=== PATIENT | female | born 1980 | race Caucasian/White ===

== ENCOUNTER 2021-06-11 04:56 | Inpatient (IN) | payer OTHER, MEDICARE ==
[2021-06-11] MEDS ORDERED: Gabapentin 300 MG Cap PO ONE (05:45)
[2021-06-11] MEDS ORDERED: Acetaminophen 500 MG Tab PO ONE (05:45)
[2021-06-11] MEDS ORDERED: Dextrose 5%-Lactated Ringers 1,000 ML IV SCH (06:00)
[2021-06-11] MEDS ORDERED: cefOXitin 2 GM Vial ONE (06:32)
[2021-06-11] MEDS ORDERED: Bupivacaine 0.5% 50 ML MDV ONE (06:33)
[2021-06-11] MEDS ORDERED: Lidocaine 1% with EPINEPHrine 1:100,000 50 ML MDV ONE (06:33)
[2021-06-11] MEDS ORDERED: Dexamethasone 4 MG/ML SDV ONE (07:15)
[2021-06-11] MEDS ORDERED: Ondansetron 4 MG/2 ML SDV ONE (07:15)
[2021-06-11] MEDS ORDERED: fentaNYL 250 MCG/5 ML SDV ONE ×2 (07:15→07:42)
[2021-06-11] MEDS ORDERED: Rocuronium 50 MG/5 ML Vial ONE ×2 (07:15→08:28)
[2021-06-11] MEDS ORDERED: Glycopyrrolate 0.2 MG/ML 5 ML MDV ONE (07:15)
[2021-06-11] MEDS ORDERED: Succinylcholine 200 MG/10 ML MDV ONE (07:15)
[2021-06-11] MEDS ORDERED: Propofol 200 MG/20 ML SDV ONE (07:15)
[2021-06-11] MEDS ORDERED: cefOXitin 2 GM in Sodium Chloride 0.9% 50 ML IV ONE (07:15)
[2021-06-11] MEDS ORDERED: Neostigmine Methylsulfate 1 MG/ML 5 ML Syringe ONE (07:15)
[2021-06-11] MEDS ORDERED: Ketamine 18 MG in Sodium Chloride 0.9% 19.82 ML IV SCH (08:00)
[2021-06-11] MEDS ORDERED: Ketamine 500 MG/5 ML MDV IV SCH (08:00)
[2021-06-11] MEDS ORDERED: Labetalol 20 MG/4 ML Syringe ONE (08:12)
[2021-06-11] MEDS ORDERED: fentaNYL 100 MCG/2 ML SDV ONE (08:19)
[2021-06-11] MEDS ORDERED: Naloxone 0.4 MG/ML SDV ONE (09:47)
[2021-06-11] MEDS ORDERED: Ondansetron 4 MG/2 ML SDV IVPUSH ONE (10:13)
[2021-06-11] MEDS ORDERED: hydrOXYzine HCL 100 MG/2 ML SDV IM ONE (10:14)
[2021-06-11] MEDS ORDERED: Baclofen 10 MG Tab PO PRN (11:40)
[2021-06-11] MEDS ORDERED: Hypromellose 0.3% Ophth Soln 15 ML Bottle EYEBOTH PRN (11:46)
[2021-06-11] MEDS ORDERED: Labetalol 20 MG/4 ML Syringe IVPUSH PRN (12:00)
[2021-06-11] MEDS ORDERED: Acetaminophen 500 MG Tab PO PRN (12:00)
[2021-06-11] MEDS ORDERED: oxyCODONE 5 MG Tab PO PRN (12:00)
[2021-06-11] MEDS ORDERED: HYDROmorphone 0.5 MG/0.5 ML Syringe IVPUSH PRN (12:00)
[2021-06-11] MEDS ORDERED: hydrOXYzine HCL 100 MG/2 ML SDV IM PRN (12:00)
[2021-06-11] MEDS ORDERED: diphenhydrAMINE 50 MG/ML SDV IVPUSH PRN (12:00)
[2021-06-11] MEDS ORDERED: Ondansetron 4 MG/2 ML SDV IVPUSH PRN (12:00)
[2021-06-11] MEDS ORDERED: HYDROmorphone 1 MG/ML Syringe IV PRN (12:00)
[2021-06-11] MEDS ORDERED: Metoclopramide 10 MG/2 ML SDV IVPUSH PRN (12:00)
[2021-06-11] MEDS: Dextrose 5%-Lactated Ringers 1,000 ML IV SCH ×2 (12:45→23:24)
[2021-06-11] MEDS: cefOXitin 2 GM in Sodium Chloride 0.9% 50 ML IV SCH ×2 (13:42→20:41)
[2021-06-11] MEDS: Pantoprazole 40 MG Vial IVPUSH SCH (13:43)
[2021-06-11] MEDS: DIFLUPREDNATE 0.05% EYERT SCH ×2 (13:44→20:41)
[2021-06-11] MEDS: Acetaminophen 500 MG Tab PO SCH ×2 (13:44→21:00)
[2021-06-11] MEDS: EYE EYERT SCH ×2 (13:44→20:41)
[2021-06-11] MEDS ORDERED: MVI, Adult with Vitamin K 10 ML, Thiamine 200 MG, Zinc/Copper/Manganese/Selenium 1 ML i... IV SCH ×4 (16:00)
[2021-06-11] MEDS: Cyclobenzaprine 10 MG Tab PO PRN (16:42)
[2021-06-11] MEDS: Heparin Sodium 5,000 Units/ML Vial SUBCUT SCH (17:25)
[2021-06-11] MEDS: carBAMazepine 200 MG Tab PO SCH (20:42)
[2021-06-11] MEDS: Topiramate 100 MG Tab PO SCH (20:42)
[2021-06-11] MEDS: traMADol 50 MG Tab PO PRN (20:48)
[2021-06-11] MEDS: Propranolol 40 MG Tab PO SCH (21:00)
[2021-06-12] MEDS: Cyclobenzaprine 10 MG Tab PO PRN (00:49)
[2021-06-12] MEDS ORDERED: Iopamidol 510 MG/ML 50 ML SDV PO ONE (02:46)
[2021-06-12] MEDS: cefOXitin 2 GM in Sodium Chloride 0.9% 50 ML IV SCH ×4 (02:53→20:58)
[2021-06-12] MEDS: traMADol 50 MG Tab PO PRN (02:53)
[2021-06-12] MEDS: Heparin Sodium 5,000 Units/ML Vial SUBCUT SCH ×2 (05:22→17:51)
[2021-06-12] MEDS: Propranolol 40 MG Tab PO SCH ×4 (05:22→20:59)
[2021-06-12] MEDS: Acetaminophen 500 MG Tab PO SCH ×3 (05:22→23:02)
[2021-06-12] MEDS: Dextrose 5%-Lactated Ringers 1,000 ML IV SCH (05:39)
[2021-06-12] MEDS ORDERED: Dextrose 5%-Lactated Ringers 1,000 ML IV SCH (08:00)
[2021-06-12] MEDS ORDERED: Propranolol 80 MG Cap.ER PO SCH (09:00)
[2021-06-12] MEDS: DIFLUPREDNATE 0.05% EYERT SCH ×3 (09:11→21:00)
[2021-06-12] MEDS: EYE EYERT SCH ×3 (09:11→21:00)
[2021-06-12] MEDS: DULoxetine 30 MG Cap PO SCH (09:15)
[2021-06-12] MEDS: Celecoxib 200 MG Cap PO SCH ×2 (09:15→21:00)
[2021-06-12] MEDS: carBAMazepine 200 MG Tab PO SCH ×2 (09:15→20:59)
[2021-06-12] MEDS: oxyCODONE 5 MG Tab PO SCH ×2 (09:21→20:59)
[2021-06-12] MEDS: Gabapentin 250 MG/5 ML Solution ML 470 ML Bottle PO SCH ×3 (09:21→20:58)
[2021-06-12] MEDS ORDERED: Scopolamine 1.5 MG Transdermal Patch TOP SCH (09:30)
[2021-06-12] MEDS: SCOPOLAMINE PATCH CHECK TOP SCH (09:55)
[2021-06-12] MEDS: Pantoprazole 40 MG Vial IVPUSH SCH (15:27)
[2021-06-12] MEDS ORDERED: MVI, Adult with Vitamin K 10 ML, Thiamine 200 MG, Zinc/Copper/Manganese/Selenium 1 ML i... IV SCH ×4 (16:00)
--- NOTE | 2021-06-12 20:30 | PN ---
DATE OF SERVICE: 06/12/2021 The patient has been afebrile with stable vital signs, status post Anahi-en-Y gastric bypass yesterday. Clinically, she is doing well. We will adjust all her pain medications to replicate what is being done at home in terms of oxycodone and gabapentin. Otherwise, we will go up to step-2 diet today. Urine output is quite high and we will decrease the IV rate, maximize activity, and work with pulmonary toilet. Alejo Pearson MD /[id number]
[2021-06-12] MEDS: Topiramate 100 MG Tab PO SCH (21:00)
[2021-06-13] MEDS: Cyclobenzaprine 10 MG Tab PO PRN (02:59)
[2021-06-13] MEDS: Heparin Sodium 5,000 Units/ML Vial SUBCUT SCH (05:32)
[2021-06-13] MEDS: Propranolol 40 MG Tab PO SCH ×2 (05:32→09:41)
[2021-06-13] MEDS: Acetaminophen 500 MG Tab PO SCH (05:32)
[2021-06-13] MEDS ORDERED: Cyanocobalamin (Vitamin B12) 1,000 MCG/ML SDV IM ONE (09:00)
--- NOTE | 2021-06-13 09:22 | OR ---
DATE OF PROCEDURE: 06/11/2021 SURGEON: Alejo Pearson MD PREOPERATIVE DIAGNOSIS: Morbid obesity. POSTOPERATIVE DIAGNOSES: 1. Morbid obesity. 2. Marked hepatomegaly. 3. Paraesophageal diaphragmatic hernia. 4. Mediastinal lipoma. 5. Area of gastric body devascularized status post dissection. OPERATIVE PROCEDURE: Diagnostic laparoscopy with: 1. Laparoscopic Anahi-en-Y gastric bypass with long limb gastroenterostomy (38881). 2. Esequiel-Cut needle liver biopsy (33003). 3. Repair of paraesophageal diaphragmatic hernia (48907). 4. Excision of mediastinal lipoma (09271). 5. Partial gastrectomy (56820). ANESTHESIA: General. INDICATIONS FOR PROCEDURE: This is a 41-year-old female presenting with longstanding morbid obesity and increasingly significant comorbidities. After preoperative evaluation and discussion, she wished to proceed with a gastric bypass procedure. Potential risks of the procedure including bleeding, infection, leaks from various GI tract closures, problems with bowel obstruction over time as well as possibility of cardiopulmonary, septic, or hemorrhagic complications leading to were discussed, and the patient wished to proceed. DETAILS OF PROCEDURE: The patient was taken to the operating room. After general endotracheal anesthesia was induced, she was placed in a lithotomy position and the abdomen prepped and draped. At 15 cm inferior and 5 cm left of the xiphoid process, a transverse incision was made. The peritoneal cavity entered under direct vision with an Optiview trocar inflated to 15 mmHg pressure with CO2. Bilateral transversus abdominis plane blocks were then placed and 5 additional trocars were placed across the upper and mid abdomen. The liver was noted to be markedly enlarged and fatty infiltrated. Esequiel-Cut needle biopsy was obtained from the left lobe of the liver. Minimal bleeding from the biopsy sites was controlled with electrocautery. At this point, the omentum was divided in the midline up to the level of the transverse colon. This allowed identification of the small bowel to the ligament of Treitz. The small bowel was then traced out 125 cm distal to that point. It was divided transversely with a PATEL stapler. The small bowel was then traced out additional 175 cm where the [id number] enteroenterostomy was accomplished with internal firing of the Endo-PATEL 60 mm stapler. Common opening was then closed transversely with the same stapler. Angles were anastomosed and mesenteric defect approximated with some 0 Ethibond stitch along with 4 mL of fibrin sealant. The divided end of the Anahi limb was then from the mesentery for a few centimeters which allowed an antecolic position of the Anahi limb up to the level of gastroesophageal junction without tension. The liver was retracted anteriorly. The patient was noted to have a moderate-sized paraesophageal diaphragmatic hernia containing some perigastric fat, gastric fundus, and a tongue of omentum. The hernia was reduced at this point, the peritoneum overlying it incised and reflected downward. During the course of the dissection, a mediastinal lipoma was encountered and this was excised to facilitate more adequate crural closure. The crura were then approximated anteriorly with 0 Ethibond sutures reinforced with PTFE pledgets. At this point, the gastrointestinal balloon catheter was then inflated to 15 mmHg pressure with CO2 and pulled up snugly against the esophagogastric junction. The gastric wall over the apex balloon was marked with electrocautery. The balloon catheter was deflated and withdrawn. The lesser omental tissue was then divided away from the area of the gastric cardia. During the course of this, there was an area of deserosalization of the stomach inferior to the point of the gastric pouch formation. The gastric pouch was initiated with a transverse firing of the PATEL stapler at the level of the cauterized yifan on the gastric cardia and completed with 2 additional firings up to and through the angle of His. Following this, both staple lines were noted to be intact. The area of deserosalization in the gastric stomach more or less along the mid and lesser curvature was then excised with additional PATEL purple load. The anvil of a 25 mm EEA stapler was attached to a [place] sump type tube. The latter was then taken down through the mouth and taken out through a small opening in the gastric pouch allowing the anvil likewise to be pulled down within the gastric pouch. The divided end of the Anahi limb was then opened. The main body of the EEA stapler was passed several centimeters in the lumen of small bowel, brought up the anvil, thus creating the gastrojejunostomy. Upon removal of the stapler, double donuts of mucosa were noted within it. The small bowel was closed off with a vascular staple line. Gastrojejunostomy was reinforced with some 3-0 Vicryl seromuscular stitch along with fibrin sealant. Leak test was accomplished with injection of 120 mL of air in the gastric pouch while submerged with a cefoxitin-containing saline solution. No leaks were identified. A single Braeden-Green drain was taken out through a left lateral trocar site and positioned adjacent to the esophagogastric from there into the splenic fossa. The trocars were removed, the peritoneal cavity deflated. The incisions were closed with some 4-0 Vicryl skin stitch. Dressing applied. The patient was taken to the recovery room in satisfactory condition. There were no evident complications. Alejo Pearson MD /[id number]
[2021-06-13] MEDS: DIFLUPREDNATE 0.05% EYERT SCH (09:39)
[2021-06-13] MEDS: EYE EYERT SCH (09:39)
[2021-06-13] MEDS: Gabapentin 250 MG/5 ML Solution ML 470 ML Bottle PO SCH (09:40)
[2021-06-13] MEDS: DULoxetine 30 MG Cap PO SCH (09:40)
[2021-06-13] MEDS: Celecoxib 200 MG Cap PO SCH (09:40)
[2021-06-13] MEDS: carBAMazepine 200 MG Tab PO SCH (09:41)
[2021-06-13] MEDS: SCOPOLAMINE PATCH CHECK TOP SCH (09:41)
[2021-06-13] MEDS: oxyCODONE 5 MG Tab PO SCH (09:48)
--- NOTE | 2021-06-14 09:11 | CR ---
[facility] HISTORY: Postbariatric surgery FINDINGS: Patient swallowed water-soluble contrast. Upright views of the abdomen show no evidence of extravasation or obstruction. There is a surgical drain in the left upper quadrant IMPRESSION: Status post bariatric surgery No extravasation or obstruction seen
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
== END 2021-06-13 11:10 | disposition home or self-care (01) | DRG 620 ==
LOC: JP.SDS 04:56 → JP.MS 04:56 → EDSTATUS 11:30
PROVIDERS: ADMIT Surgery; ATTEND Surgery
PROC: 0D164ZA Bypass Stomach to Jejunum, Percutaneous Endoscopic Approach (ICD-10-PCS; principal; 2021-06-11)
PROC: 0FB24ZX Excision of Left Lobe Liver, Percutaneous Endoscopic Approach, Diagnostic (ICD-10-PCS; 2021-06-11)
PROC: 0BQT4ZZ Repair Diaphragm, Percutaneous Endoscopic Approach (ICD-10-PCS; 2021-06-11)
PROC: 0DB64ZZ Excision of Stomach, Percutaneous Endoscopic Approach (ICD-10-PCS; 2021-06-11)
PROC: 0JB63ZZ Excision of Chest Subcutaneous Tissue and Fascia, Percutaneous Approach (ICD-10-PCS; 2021-06-11)
DX: E66.01 Morbid (severe) obesity due to excess calories (principal); K91.71 Accidental puncture and laceration of a digestive system organ or structure during a digestive system procedure; R16.0 Hepatomegaly, not elsewhere classified; K44.9 Diaphragmatic hernia without obstruction or gangrene; D17.4 Benign lipomatous neoplasm of intrathoracic organs; H02.889 Meibomian gland dysfunction of unspecified eye, unspecified eyelid; T26.11XA Burn of cornea and conjunctival sac, right eye, initial encounter; H40.9 Unspecified glaucoma; G43.909 Migraine, unspecified, not intractable, without status migrainosus; K21.9 Gastro-esophageal reflux disease without esophagitis; Y83.8 Other surgical procedures as the cause of abnormal reaction of the patient, or of later complication, without mention of misadventure at the time of the procedure; N81.4 Uterovaginal prolapse, unspecified; Q07.00 Arnold-Chiari syndrome without spina bifida or hydrocephalus; Z94.7 Corneal transplant status; Z90.49 Acquired absence of other specified parts of digestive tract; Z79.891 Long term (current) use of opiate analgesic; Z90.710 Acquired absence of both cervix and uterus; Z79.899 Other long term (current) drug therapy; Z68.39 Body mass index [BMI] 39.0-39.9, adult
CPT/HCPCS: 36415; 74240; 74240-26; 82947; 86850; 86900; 86901; 88304; 88305; 88307; 88313; A9270-GY; C9113; J0171; J0330; J0694; J1100; J1170; J1644; J2310; J2405; J2704; J2710; J2795; J3010; J3410; J3411; J3420; J3490; J7121; Q9966